=== PATIENT | female | born 1975 | race Caucasian/White ===

== ENCOUNTER 2017-11-15 14:39 | Emergency (ER) | payer MEDICAID ==
[~2017-11-15] VITALS: Ht 152.4 cm; Wt 83.0 kg
[~2017-11-15 14:39] MED LIST: ATENOLOL 50 MG
[2017-11-15 14:43] VITALS: BP 140/71
--- NOTE | 2017-11-15 15:06 | NUR ---
42/F PRESENT TO ER C/O COUGH,FOR 2 WEEKS, LOWER BACK PAIN, ARMS, NECK, PAIN FOR 3 DAYS NO TRAUMA NOR INJURY. AAOx4, PERRLA, BREATHING EVEN AND UNLABORED. ERMD NOTIFIED OF PATIENT STATUS.
--- NOTE | 2017-11-15 15:45 | NUR ---
Patient being evaluated by physician at bedside.
[2017-11-15] MEDS ORDERED: IBUPROFEN 600 MG TAB PO ONE (16:15)
--- NOTE | 2017-11-15 18:34 | NUR ---
Patient discharged with v/s stable. Written and verbal after care instructions given and explained. Patient alert, oriented and verbalized understanding of instructions. Ambulatory with steady gait. All questions addressed prior to discharge. ID band removed. Patient advised to follow up with PMD. Rx of ALBUTEROL 90MCG/ACTUATION,TRAMADOL 50MG TABLET, MOTRIN 600MG AND ROBITUSSIN 100MG/5ML SYRUP given. Patient educated on indication of medication including possib le reaction and side effects. Opportunity to ask questions provided and answered.
[2017-11-15 18:36] VITALS: BP 127/88
== END 2017-11-15 18:34 | disposition home or self-care (01) ==
LOC: MED 14:39
DX: J45.909 Unspecified asthma, uncomplicated (principal); M79.1 Myalgia; I10 Essential (primary) hypertension; Z79.899 Other long term (current) drug therapy
CPT/HCPCS: 36415; 81002; 87804; 99284

== ENCOUNTER 2018-04-29 21:22 | Emergency (ER) | payer MEDICAID ==
[~2018-04-29] VITALS: Ht 154.9 cm; Wt 83.0 kg
[2018-04-29 21:36] VITALS: BP 173/81
--- NOTE | 2018-04-29 21:36 | NUR ---
42 Y/O F BIB W/C/O ABD PAIN X1 DAY, N/V/D X1DAY. PT STATES IT JUST CAME ON WITH NO AGGRIVATING FACTORS. PT HAS 10/10 PAIN THAT FEELS LIKE ITS BURNING AND DOES NOT RADIATE ANYWHRE ELSE. AAOX4 ON RA. PT STATES SHE HAS HX HTN. NKA
--- NOTE | 2018-04-29 21:37 | NUR ---
Patient ambulated to bed 9. RN evaluating patient at bedside.
--- NOTE | 2018-04-29 21:48 | NUR ---
Dr. Smith evaluating patient at bedside.
--- NOTE | 2018-04-29 22:08 | NUR ---
pt returned from x ray via wheel chair.
[2018-04-29] MEDS ORDERED: LACTULOSE 20 GM/30 ML UDC PO ONE (22:50)
--- NOTE | 2018-04-29 22:55 | NUR ---
PT C/O HEADACHE IN FRONTAL LOBE. PAIN IS 6/10 AND IT FEELS LIKE AN ACHING SENSATION. PAIN DOES NOT RADIATE ANYWHERE ELSE. DR. KILPATRICK MADE AWARE
[2018-04-29] MEDS ORDERED: IBUPROFEN 800 MG TAB PO ONE (23:00)
[2018-04-29 23:43] VITALS: BP 136/75
--- NOTE | 2018-04-29 23:44 | NUR ---
Patient discharged with v/s stable. Written and verbal after care instructions given and explained. Patient alert, oriented and verbalized understanding of instructions. Ambulatory with steady gait. All questions addressed prior to discharge. ID band removed. Patient advised to follow up with PMD. Rx of LACTULOSE 10MG given. Patient educated on indication of medication including possible reaction and side effects. Opportunity to ask questions provided and answered.
== END 2018-04-29 23:44 | disposition home or self-care (01) ==
LOC: MED 21:22
DX: K59.00 Constipation, unspecified (principal); E11.9 Type 2 diabetes mellitus without complications; I10 Essential (primary) hypertension
CPT/HCPCS: 74018; 81002; 81025; 99283